=== PATIENT | male | born 1980 | race Caucasian/White ===

== ENCOUNTER 2018-02-25 19:07 | Emergency (ER) | payer OTHER ==
[~2018-02-25] VITALS: Ht 175.3 cm; Wt 80.3 kg
[2018-02-25] MEDS ORDERED: DICY20TA (19:36)
[2018-02-25] MEDS ORDERED: ZOFRAN4 MG (19:36)
[2018-02-26] MEDS ORDERED: INTESTINEX680 M1 PO (00:31)
[2018-02-26] MEDS ORDERED: ZOFRAN ODT4 MG PO (00:31)
[2018-02-26] MEDS ORDERED: ZANTAC300 MG PO (00:31)
[2018-02-26] MEDS ORDERED: LEVSIN/SL0.125 MG PO (00:31)
== END 2018-02-26 00:45 | disposition home or self-care (01) ==
LOC: ER 19:07
DX: K52.9 Noninfective gastroenteritis and colitis, unspecified (principal); E86.0 Dehydration